=== PATIENT | female | born 1990 | race Caucasian/White ===

== ENCOUNTER 2018-10-10 18:45 | Outpatient (CLI) | payer MEDICAID, SELFPAY | END 2018-10-10 19:04 | disposition home or self-care (01) | LOC: UTC.OUT 18:47 | PROVIDERS: PCP Emergency Medicine; Visit Provider Nurse Practitioner | DX: Z00.00 Encounter for general adult medical examination without abnormal findings (principal) ==

== ENCOUNTER 2019-02-28 11:00 | Emergency (ER) | payer MEDICAID, SELFPAY ==
--- NOTE | 2019-02-28 11:08 | US_ITS ---
US OB transvaginal CLINICAL INDICATION: Patient gives history of recent ectopic with methotrexate given, cramping and spotting. ITS.REASON: ectopic ORDERING PHYSICIAN: Mynor Jones MD PATIENT AGE: 28 years Comparison: None There are no previous exams available at this institution for comparison FINDINGS: The uterus is 9 x 5 x 5 cm with a combined endometrial thickness of 9 mm. No intrauterine gestational sac is evident. The left ovary measures 3 x 2 cm containing small follicles. Blood flow is present. The right ovary is 6 x 3 cm containing 2 cysts at 1.9 and 1.4 cm. There is a hyperechoic rounded area along the right ovary measuring 2.4 cm. This does contain some blood flow and there is blood flow in the right ovary as well. This hyperechoic area could represent a and ectopic or a hemorrhagic ovarian cyst. There is a small amount of free fluid in the cul-de-sac. IMPRESSION: 1. No intrauterine gestation apparent. 2. Unremarkable appearing left ovary. 3. There are 2 right ovarian cyst as well as a hyperechoic region along the right ovary which could represent an ectopic or hemorrhagic cyst. Correlation with previous ultrasound needed and unavailable. There is a small amount fluid in the cul-de-sac. I am told that the serum beta hCG is 12,525. An intrauterine gestation patient be seen with this level. The findings are consistent with an ectopic .
[2019-02-28 11:09] VITALS: BP 142/76; PULSE 109; RESP 20; TEMP 36.8; O2SAT 100; BMI 19.1
--- NOTE | 2019-02-28 11:10 | HMH.EDGENADL ---
ED Disposition Clinical Impression: Ectopic Qualifiers: Location of ectopic : unspecified location Intrauterine status: unspecified Qualified Code(s): O00.90 - Unspecified ectopic without intrauterine Disposition: Home, Self-Care Condition on Discharge: Good Instructions: DI for Acute Abdomen Prescriptions: Hydrocodone/Acetaminophen [[place] 5-325 Tablet] 1 each PO BID 1 Days #3 tab Referrals: Sreedhar Chow MD [Primary Care Provider] - - Critical Care Critical Care Time: No Attestation: On , the high probability of a clinically significant, sudden or life threatening deterioration of the following system(s) required my full and direct attention, intervention and personal management. The time I documented below is in addition to time spent performing reported procedures but includes the following listed in this critical care notation. Medical Decision Making - Medical Records Medical records reviewed: Yes: I reviewed the patient's medical records. - Shailesh Inquiry Pt receiving controlled substance: Yes Shailesh was queried for this patient: No Reason not queried -: Emergent pt cond-no time Risks and benefits of using a controlled substance: were discussed with pt by me Vital Signs: 02/28/19 11:09 02/28/19 11:31 Temperature 98.2 F Temperature Source Oral Pulse Rate [Left Radial] 109 H 77 Respiratory Rate 20 Blood Pressure [Right Arm] 142/76 H 121/68 Blood Pressure Mean [Right Arm] 98 85 Blood Pressure Source [Right Arm] Automatic Cuff Blood Pressure Position [Right Arm] Sitting 02 Sat by Pulse Oximetry 100 100 Oxygen Delivery Method Room Air - Lab Data Lab results reviewed: Yes: I reviewed the patient's lab results. Lab Results 02/28/19 11:15: WBC 11.0 H, RBC 4.26, Hgb 13.1, Hct 38.1, MCV 89.4, MCH 30.7, MCHC 34.3, RDW 12.1, Plt Count 212, MPV 7.5, Neut % (Auto) 90.3 H, Lymph % (Auto) 7.4 L, [place] % (Auto) 1.9, Eos % (Auto) 0.3, Baso % (Auto) 0.1, Neut # (Auto) 9.9 H, Lymph # (Auto) 0.8, [place] # (Auto) 0.2, Eos # (Auto) 0.0, Baso # (Auto) 0.0, Total Counted 100, Neutrophils % (Manual) 87 H, Lymphocytes % (Manual) 6 L, Monocytes % (Manual) 7, Platelet Estimate Normal, RBC Morphology Normal 02/28/19 11:15: Sodium 139, Potassium 3.8, Chloride 103, Carbon Dioxide 23, Anion Gap 13.4, BUN 7, Creatinine 0.67, Estimated Creat Clear 111, Estimated GFR 106, Est GFR ( Amer) 129, Glucose 102, Calcium 8.7, Total Bilirubin 0.9, AST 21, ALT 28, Alkaline Phosphatase 37 L, Total Protein 7.6, Albumin 4.3, Globulin 3.3 H, Albumin/Globulin Ratio 1.3, Lipase 134, HCG, Quant 55000 H 02/28/19 11:33: Blood Type O Negative 02/28/19 12:18: Urine Color Yellow, Urine Appearance Sl cloudy, Urine pH 6.0, Ur Specific [place] <= 1.005, Urine Protein Negative, Urine Glucose (UA) Negative, Urine Ketones Trace, Urine Blood 2+, Urine Nitrate Negative, Urine Bilirubin Negative, Urine Urobilinogen 0.2, Ur Leukocyte Esterase Negative, Urine RBC 3-5, Urine WBC 3-5, Ur Squamous Epith Cells 5-10, Urine Bacteria 3+ Result diagrams: 02/28/19 11:15 02/28/19 11:15 Orders (Tests/Meds): ED MEDICATIONS Discontinued Medications Generic Name Dose Route Start Last Admin Trade Name Freq PRN Reason Stop Dose Admin Sodium Chloride 1,000 mls @ 999 mls/hr 02/28/19 11:15 02/28/19 11:28 Sod Chlor 0.9% 1000ml Bag IV 02/28/19 12:15 999 mls/hr .Q1H1M STEWART Administration Morphine Sulfate 2 mg 02/28/19 11:09 02/28/19 11:28 Morphine 2mg/Ml Syringe IV 02/28/19 11:10 2 mg ONCE ONE Administration Ondansetron HCl 4 mg 02/28/19 11:27 02/28/19 11:27 Zofran 4mg/2ml Vial IV 02/28/19 11:28 4 mg ONCE ONE Administration Rho Immune Globulin 1,500 unit 02/28/19 13:30 Rhogam Ultra-Filtered Plus IM 02/28/19 13:31 ONCE ONE ORDERS Category Date Time Status Urine Culture Stat Micro 02/28/19 12:18 Received - US Data US Images: Pelvis ED US Reviewed: Yes: Brynn mcgarry
--- NOTE | 2019-02-28 11:13 | ED_ITS ---
ED Disposition Clinical Impression: Ectopic Qualifiers: Location of ectopic : unspecified location Intrauterine status: unspecified Qualified Code(s): O00.90 - Unspecified ectopic without intrauterine Disposition: Home, Self-Care Condition on Discharge: Good Instructions: DI for Acute Abdomen Prescriptions: Hydrocodone/Acetaminophen [[place] 5-325 Tablet] 1 each PO BID 1 Days #3 tab Referrals: Sreedhar Chow MD [Primary Care Provider] - - Critical Care Critical Care Time: No Attestation: On , the high probability of a clinically significant, sudden or life threatening deterioration of the following system(s) required my full and direct attention, intervention and personal management. The time I documented below is in addition to time spent performing reported procedures but includes the following listed in this critical care notation. Medical Decision Making - Medical Records Medical records reviewed: Yes: I reviewed the patient's medical records. - Shailesh Inquiry Pt receiving controlled substance: Yes Shailesh was queried for this patient: No Reason not queried -: Emergent pt cond-no time Risks and benefits of using a controlled substance: were discussed with pt by me Vital Signs: 02/28/19 11:09 02/28/19 11:31 Temperature 98.2 F Temperature Source Oral Pulse Rate [Left Radial] 109 H 77 Respiratory Rate 20 Blood Pressure [Right Arm] 142/76 H 121/68 Blood Pressure Mean [Right Arm] 98 85 Blood Pressure Source [Right Arm] Automatic Cuff Blood Pressure Position [Right Arm] Sitting 02 Sat by Pulse Oximetry 100 100 Oxygen Delivery Method Room Air - Lab Data Lab results reviewed: Yes: I reviewed the patient's lab results. Lab Results 02/28/19 11:15: WBC 11.0 H, RBC 4.26, Hgb 13.1, Hct 38.1, MCV 89.4, MCH 30.7, MCHC 34.3, RDW 12.1, Plt Count 212, MPV 7.5, Neut % (Auto) 90.3 H, Lymph % (Auto) 7.4 L, [place] % (Auto) 1.9, Eos % (Auto) 0.3, Baso % (Auto) 0.1, Neut # (Auto) 9.9 H, Lymph # (Auto) 0.8, [place] # (Auto) 0.2, Eos # (Auto) 0.0, Baso # (Auto) 0.0, Total Counted 100, Neutrophils % (Manual) 87 H, Lymphocytes % (Manual) 6 L, Monocytes % (Manual) 7, Platelet Estimate Normal, RBC Morphology Normal 02/28/19 11:15: Sodium 139, Potassium 3.8, Chloride 103, Carbon Dioxide 23, Anion Gap 13.4, BUN 7, Creatinine 0.67, Estimated Creat Clear 111, Estimated GFR 106, Est GFR ( Amer) 129, Glucose 102, Calcium 8.7, Total Bilirubin 0.9, AST 21, ALT 28, Alkaline Phosphatase 37 L, Total Protein 7.6, Albumin 4.3, Globulin 3.3 H, Albumin/Globulin Ratio 1.3, Lipase 134, HCG, Quant 16414 H 02/28/19 11:33: Blood Type O Negative 02/28/19 12:18: Urine Color Yellow, Urine Appearance Sl cloudy, Urine pH 6.0, Ur Specific Lane <= 1.005, Urine Protein Negative, Urine Glucose (UA) Negative, Urine Ketones Trace, Urine Blood 2+, Urine Nitrate Negative, Urine Bilirubin Negative, Urine Urobilinogen 0.2, Ur Leukocyte Esterase Negative, Urine RBC 3-5, Urine WBC 3-5, Ur Squamous Epith Cells 5-10, Urine Bacteria 3+ Result diagrams: 02/28/19 11:15 02/28/19 11:15 Orders (Tests/Meds): ED MEDICATIONS Discontinued Medications Generic Name Dose Route Start Last Admin Trade Name Freq PRN Reason Stop Dose Admin Sodium Chloride 1,000 mls @ 99
[2019-02-28 11:27] LABS: Basophils % 0.1 % (0.1-2.0); Eosinophils % 0.3 % (0.1-12.0); Hematocrit 38.1 % (37.0-47.0); Hemoglobin 13.1 g/dL (12.2-16.2); Lymphocytes # 0.8 K/mm3 (0.7-4.5); Lymphocytes % 7.4 % (10-50); Mean Corpuscular HGB Conc 34.3 g/dL (31.8-35.4); Mean Corpuscular Hemoglobin 30.7 pg (27.0-31.2); Mean Corpuscular Volume 89.4 fl (81-99); Mean Platelet Volume 7.5 fl (7.4-10.4); Monocytes # 0.2 K/mm3 (0.1-1.0); Monocytes % 1.9 % (1.7-9.3); Neutrophils # 9.9 K/mm3 (1.8-7.8); Neutrophils % 90.3 % (37.0-80.0); Platelet Count 212 K/mm3 (142-424); Red Blood Count 4.26 M/mm3 (4.20-5.40); Red Cell Distribution Width 12.1 % (11.5-17.5)
[2019-02-28 11:31] VITALS: BP 121/68; PULSE 77; O2SAT 100
[2019-02-28 11:46] LABS: MANUAL DIFFERENTIAL MANUAL DIFFERENTIAL (MANUAL DIFF)
[2019-02-28 11:47] LABS: Sodium 139 mmol/L (136-145)
[2019-02-28 11:48] LABS: Alanine Aminotransferase 28 U/L (12-78); Albumin Level 4.3 gm/dL (3.4-5.0); Albumin/Globulin Ratio 1.3 (1.1-1.8); Alkaline Phosphatase 37 U/L (46-116); Anion Gap 13.4 mEq/L (5-15); Aspartate Amino Transferase 21 U/L (15-37); Bilirubin,Total 0.9 mg/dL (0.2-1.0); Blood Urea Nitrogen 7 mg/dL (7-18); Calcium 8.7 mg/dL (8.5-10.1); Carbon Dioxide 23 mmol/L (21.0-32.0); Chloride 103 mmol/L (98-107); Creatinine Clearance Estimated 111 mL/min (50-200); Creatinine,Serum 0.67 mg/dL (0.55-1.02); Estimated Glomerular Filt Rate 106 ml/min (>60); GFR (African American) 129 ML/MIN (>60); Globulin 3.3 gm/dl (1.3-3.2); Glucose 102 mg/dL (74-106); Lipase 134 u/L (73-393); Potassium 3.8 mmoL/L (3.5-5.1); Total Protein,Serum 7.6 gm/dL (6.4-8.2)
[2019-02-28 11:58] LABS: HCG,Quantitative 12525 mIU/mL
[2019-02-28 12:01] LABS: Lymphocytes % 6 % (10-50); Monocytes % 7 % (2-9); Neutrophils % 87 % (42-76); Platelet Estimate Normal; RBC Morphology Normal; Total Cells Counted 100
--- NOTE | 2019-02-28 12:17 | PC.NURSE ---
gone to ultrasound
[2019-02-28 12:22] LABS: Microscopic, Urine URINE MICROSCOPIC (MICROSCOPIC)
[2019-02-28 12:24] LABS: Appearance,Urine SL CLOUDY (Clear); Bilirubin,Urine Negative (Negative); Blood, Urine 2+ (Negative); Color,Urine YELLOW (Yellow); Glucose,Urine (UA) Negative (Negative); Ketones,Urine TRACE (Negative); Leukocyte Esterase,Urine Negative (Negative); Nitrate,Urine Negative (Negative); Protein,Urine Negative (Negative); Specific Gravity, Urine <= 1.005 (1.005-1.030); Urobilinogen,Urine 0.2 EU/dl (0.2)
[2019-02-28 12:35] LABS: Bacteria,Urine 3+ /lpf
--- NOTE | 2019-02-28 14:18 | PC.NURSE ---
called lab and spoke with Alireza to check status of rhogram shot
[2019-02-28 15:27] VITALS: BP 106/77; PULSE 94; RESP 17; TEMP 36.9; O2SAT 100
== END 2019-02-28 15:28 | disposition home or self-care (01) ==
PROVIDERS: Emergency Provider Emergency Medicine Emergency Medical Services; PCP Emergency Medicine
DX: O00.90 Unspecified ectopic pregnancy without intrauterine pregnancy (principal); F41.9 Anxiety disorder, unspecified; F17.210 Nicotine dependence, cigarettes, uncomplicated
CPT/HCPCS: 36415; 76817; 80053; 81001; 83690; 84702; 85007; 85025; 86870; 87086; 87088; 87186; 96365; 96372; 96375; 99283; J2405; J2790

== ENCOUNTER 2019-03-07 23:09 | Inpatient (IN) | payer MEDICAID, SELFPAY ==
[2019-03-07 23:09] VITALS: BMI 20.5
[2019-03-07 23:27] VITALS: BP 104/38; PULSE 88; RESP 20; TEMP 36.8; O2SAT 100; BMI 18.8
[2019-03-07 23:30] LABS: Basophils % 0.2 % (0.1-2.0); Eosinophils % 0.2 % (0.1-12.0); Hematocrit 32.3 % (37.0-47.0); Hemoglobin 10.5 g/dL (12.2-16.2); Lymphocytes # 1.3 K/mm3 (0.7-4.5); Lymphocytes % 7.2 % (10-50); Mean Corpuscular HGB Conc 32.5 g/dL (31.8-35.4); Mean Corpuscular Hemoglobin 29.1 pg (27.0-31.2); Mean Corpuscular Volume 89.4 fl (81-99); Mean Platelet Volume 7.8 fl (7.4-10.4); Monocytes # 0.5 K/mm3 (0.1-1.0); Monocytes % 2.6 % (1.7-9.3); Neutrophils # 16.7 K/mm3 (1.8-7.8); Neutrophils % 89.9 % (37.0-80.0); Platelet Count 309 K/mm3 (142-424); Red Blood Count 3.62 M/mm3 (4.20-5.40); Red Cell Distribution Width 12.7 % (11.5-17.5); White Blood Count 18.6 K/mm3 (4.8-10.8)
[2019-03-07 23:36] LABS: MANUAL DIFFERENTIAL MANUAL DIFFERENTIAL (MANUAL DIFF)
[2019-03-07 23:40] LABS: Lymphocytes % 8 % (10-50); Monocytes % 2 % (2-9); Neutrophils % 80 % (42-76); Platelet Estimate Normal; RBC Morphology Normal; Total Cells Counted 100
--- NOTE | 2019-03-07 23:40 | PC.NURSE ---
patient assessed at this time. pt is pale and c/o lower abdominal pain. vitals stable at this time. iv access obtained and labs sent to lab for resulting. Dr evangelista notified of patient and patient status at this time.
[2019-03-07 23:45] LABS: Alanine Aminotransferase 19 U/L (12-78); Albumin Level 3.8 gm/dL (3.4-5.0); Albumin/Globulin Ratio 1.2 (1.1-1.8); Alkaline Phosphatase 29 U/L (46-116); Anion Gap 12.3 mEq/L (5-15); Aspartate Amino Transferase 15 U/L (15-37); Bilirubin,Total 0.3 mg/dL (0.2-1.0); Blood Urea Nitrogen 8 mg/dL (7-18); Calcium 8.3 mg/dL (8.5-10.1); Carbon Dioxide 27 mmol/L (21.0-32.0); Chloride 105 mmol/L (98-107); Creatinine Clearance Estimated 131 mL/min (50-200); Creatinine,Serum 0.56 mg/dL (0.55-1.02); Estimated Glomerular Filt Rate 131 ml/min (>60); GFR (African American) 158 ML/MIN (>60); Globulin 3.1 gm/dl (1.3-3.2); Glucose 125 mg/dL (74-106); Potassium 3.3 mmoL/L (3.5-5.1); Sodium 141 mmol/L (136-145); Total Protein,Serum 6.9 gm/dL (6.4-8.2)
--- NOTE | 2019-03-07 23:52 | HMH.EDUROGF ---
ED Disposition Clinical Impression: Ruptured ectopic Disposition: Admitted as Observation Condition on Discharge: Critical Instructions: DI for Acute Abdomen Referrals: Provider,Referral, [Primary Care Provider] - - Critical Care Critical Care Time: No Attestation: On 03/07/19, the high probability of a clinically significant, sudden or life threatening deterioration of the following system(s) required my full and direct attention, intervention and personal management. The time I documented below is in addition to time spent performing reported procedures but includes the following listed in this critical care notation. Medical Decision Making - Medical Records Medical records reviewed: Yes: I reviewed the patient's medical records. - Shailesh Inquiry Pt receiving controlled substance: No Vital Signs: 03/07/19 23:27 Temperature 98.3 F Temperature Source Oral Pulse Rate [Right] 88 Respiratory Rate 20 Blood Pressure [Right Arm] 104/38 L Blood Pressure Mean [Right Arm] 60 02 Sat by Pulse Oximetry 100 - Lab Data Lab results reviewed: Yes: I reviewed the patient's lab results. Lab Results 03/07/19 23:26: WBC 18.6 H, RBC 3.62 L, Hgb 10.5 L, Hct 32.3 L, MCV 89.4, MCH 29.1, MCHC 32.5, RDW 12.7, Plt Count 309, MPV 7.8, Neut % (Auto) 89.9 H, Lymph % (Auto) 7.2 L, [place] % (Auto) 2.6, Eos % (Auto) 0.2, Baso % (Auto) 0.2, Neut # (Auto) 16.7 H, Lymph # (Auto) 1.3, [place] # (Auto) 0.5, Eos # (Auto) 0.0, Baso # (Auto) 0.0, Total Counted 100, Neutrophils % (Manual) 80 H, Band Neutrophils % 10.0 H, Lymphocytes % (Manual) 8 L, Monocytes % (Manual) 2, Platelet Estimate Normal, RBC Morphology Normal 03/07/19 23:26: Sodium 141, Potassium 3.3 L, Chloride 105, Carbon Dioxide 27, Anion Gap 12.3, BUN 8, Creatinine 0.56, Estimated Creat Clear 131, Estimated GFR 131, Est GFR ( Amer) 158, Glucose 125 H, Calcium 8.3 L, Total Bilirubin 0.3, AST 15, ALT 19, Alkaline Phosphatase 29 L, Total Protein 6.9, Albumin 3.8, Globulin 3.1, Albumin/Globulin Ratio 1.2 03/07/19 23:26: HCG, Quant 4849 H 03/08/19 00:30: Crossmatch (AHG) See Detail Result diagrams: 03/07/19 23:26 03/07/19 23:26 Orders (Tests/Meds): ED MEDICATIONS Generic Name Dose Route Start Last Admin Trade Name Freq PRN Reason Stop Dose Admin Sodium Chloride 1,000 mls @ 999 mls/hr 03/07/19 23:15 03/07/19 23:39 Sod Chlor 0.9% 1000ml Bag IV 03/08/19 00:15 999 mls/hr .Q1H1M STEWART Administration Sodium Chloride 1,000 mls @ 999 mls/hr 03/08/19 00:30 03/08/19 00:22 Sod Chlor 0.9% 1000ml Bag IV 03/08/19 01:30 999 mls/hr .Q1H1M STEWART Administration Sodium Chloride 1,000 mls @ 999 mls/hr 03/08/19 00:30 03/08/19 00:22 Sod Chlor 0.9% 1000ml Bag IV 03/08/19 01:30 999 mls/hr .Q1H1M STEWART Administration Discontinued Medications Generic Name Dose Route Start Last Admin Trade Name Porfirioq PRN Reason Stop Dose Admin Ketorolac Tromethamine 30 mg 03/07/19 23:11 03/07/19 23:39 Toradol 30mg/Ml Vial IV 03/07/19 23:12 30 mg ONCE ONE Administration Ondansetron HCl 4 mg 03/07/19 23:11 03/07/19 23:39 Zofran 4mg/2ml Vial IV 03/07/19 23:12 4 mg ONCE ONE Administration ORDERS Category Date Time Status Red Blood Cells Stat BBK 03/08/19 00:30 Received Type and Screen Stat BBK 03/08/19 00:[address] abdomen pelvis wo con Stat Cat Scan 03/08/19 00:18 Taken Urinalysis and Microscopic Stat Lab 03/07/19 23:13 Ordered - Physician Consults Physician Consulted: serafin Reason -: Pt condition Female Urogenital HPI - General Chief complaint: PAIN Stated complaint: abd. pain Time Seen by Provider: 06/09/19 23:52 Mode of Arrival: Ambulatory Source of Information: Patient, Medical Record Limitations: No Limitations Description of Symptoms (Recalled from ER Triage Doc. by RN): Pt states thr friday before last she was being treated at [facility] for an eptopic and recieved a methotraxate injection. Pt st
[2019-03-08] VITALS (44 sets, daily range): BP systolic 81–125; BP diastolic 28–95; PULSE 64–135; RESP 12–20; TEMP 35.9–43; O2SAT 97–104
--- NOTE | 2019-03-08 00:05 | PC.NURSE ---
consulting with Kleber
[2019-03-08 00:08] LABS: HCG,Quantitative 4849 mIU/mL
--- NOTE | 2019-03-08 00:11 | PC.NURSE ---
Addendum entered by Li Frances RN 03/08/19 01:27: Pt stable at this time, RN (fraternity house cook) accompanying pt. Pt a&ox3, VSS Original Note: Pt to CT at this time
--- NOTE | 2019-03-08 00:18 | CT_ITS ---
CT abdomen pelvis wo con CLINICAL INDICATION: Severe lower abdominal pain, history of ectopic ITS.REASON: abd pain ORDERING PHYSICIAN: Diego Parker MD PATIENT AGE: 28 years COMPARISON: None TECHNIQUE: Axial images obtained with sagittal and coronal reformats. All CT scans at the facility use one or more dose reduction, viz: automated exposure control, ma/kV adjustment per patient size (including targeted exams where dose is matched to indication, i.e. head), or iterative reconstruction technique. PROCEDURE: Oral Contrast: None IV Contrast: None . FINDINGS: The liver, spleen, adrenal glands, pancreas, and kidneys have an unremarkable appearance. No intestinal obstruction or free air is evident. The appendix is not clearly delineated. There is high-volume hyperdense fluid seen throughout the abdomen and pelvis more pronounced in the pelvic region centrally and on the left. A multilocular cystic structure present in the right adnexa. Hyperdense material also noted within the endometrium. IMPRESSION: 1. Extensive/high volume hemoperitoneum with multilocular cystic structure in the right adnexa which may be due to ruptured ectopic or ruptured ovarian cystic lesion versus underlying hydrosalpinx/hematosalpinx. 2. Hyperdense material within the endometrium probably due to hemorrhage/blood products. [facility] teleradiology report rendered 03/08/2019 12:46 AM
--- NOTE | 2019-03-08 00:33 | PC.NURSE ---
Dr Shahid with pt.
--- NOTE | 2019-03-08 00:42 | PC.NURSE ---
received verbal order for ancef [address] betancourt. dr betancourt instructs nurse to go ahead and initiate antibiotic therapy at this time. see mar.
--- NOTE | 2019-03-08 00:45 | PC.NURSE ---
pt remains c/o lower abdominal pain and cramping. pt lies on left side for minimal relief. anesthesia paged to obtain pain med relief recommendation by dr evangelista verbal order. no return call as of yet.
--- NOTE | 2019-03-08 00:53 | PC.NURSE ---
Pt to surgery at this time
--- NOTE | 2019-03-08 01:45 | PC.NURSE ---
Emergent blood started in OR witnessed per R Feeback
--- NOTE | 2019-03-08 01:55 | XR_ITS ---
XR KUB HISTORY: Foreign body evaluation exploratory laparotomy and removal right fallopian tube ITS.REASON: surgery ORDERING PHYSICIAN: Diego Parker MD PATIENT AGE: 28 years COMPARISON: None FINDINGS: Ceballos catheter is present. Nonspecific bowel gas pattern. No intestinal obstruction. There is mild amount of retained colonic feces. No radio opaque foreign body apparent. IMPRESSION: No radio opaque foreign body is evident..
--- NOTE | 2019-03-08 02:07 | P.OP_ITS ---
Date of procedure: 03/08/19 (Because the patient was exhibiting orthostatic hypotension and nominal distention, and because the CT scan demonstrated a large amount of fluid in the abdomen/pelvis, the decision was made to proceed directly to laparotomy.) Pre-op Diagnosis:: 1. Ruptured right ectopic . 2. Hemoperitoneum. Post-op Diagnosis:: 1. Leaking right ectopic . 2. Massive hemoperitoneum. Procedure performed:: 1. Exploratory laparotomy. 2. Evacuation of hemoperitoneum. 3. Right salpingectomy. Surgeon:: Karthik Shahid MD Well Driller Helper(s):: Dr. Camacho RECOVERY ROOM RN:: Tom Esteban Anesthesia: GETA Estimated blood loss (mL): 1,200 Operative findings:: Massive hemoperitoneum. Leaking right ectopic . Operative note:: After the patient was prepped and draped in usual fashion and general anesthesia was administered, a Ceballos catheter was placed per urethram, with the exudation of clear urine. A low Pfannenstiel incision was made across the midline, and the fat and fascia were in usual fashion, bleeders being clamped and coagulated along the way. The peritoneum was entered with Metzenbaum scissors. A large amount of blood and clots extruded from the incision, the clots filling a basin. The bowel was packed away, and a self-retaining [place] retractor with bladder blade was placed. The uterus was slightly enlarged and slightly boggy, but of normal configuration. The left tube and ovary appeared normal. On the right side the ovary appeared normal, save for a small distal pole corpus luteum cyst. Right tube was convoluted and distended with a mid tubal ectopic, which was bleeding. It was felt that the tube was not salvageable. The tube was grasped in 2 places with Jaylon clamps, and the mesosalpinx was crossclamped and cut, thus removing the right fallopian tube with the ectopic . The pedicle was doubly ligated with 2-0 Vicryl. There was no further undue bleeding. Extensive irrigation was carried out. There was quite a bit of blood and clots in both gutters and throughout the cul-de-sac, all of which was suctioned and evacuated. (The estimated total was 1,200 cc.) There was no other pathology noted. Interceed was placed over the right adnexa to obviate the formation of adhesions. The peritoneum was grasped with 3 Elana clamps, and closed with a running semi-locked suture of 0 Vicryl. The muscle was approximated with a running unlocked suture of 0 Vicryl. The fascia was closed with a running locked suture of #1 Vicryl. The subcutaneous fat and Cesar's fascia were closed with a running unlocked suture of 2-0 Vicryl. The skin was closed with a subcuticular suture of 3-0 Vicryl, and appropriately dressed. The urine was clear in the Ceballos catheter. The sponge and needle count had not been done preop because of the urgency of the procedure (a postop x-ray demonstrated no foreign bodies). The estimated blood loss was 1,200 cc. It should be noted that the patient's preop hemoglobin was 10.5 g, although it that likely did not reflect her true hemodynamic status. 1 unit of packed cells was found during surgery, and the second will be administered. The patient's blood type is O-, and she will receive RhoGam postoperatively. She will be admitted postoperatively. Condition: stable Disposition: PACU Specimens:: Right fallopian tube with ectopic Complications:: None
[2019-03-08 02:27] LABS: Microscopic, Urine URINE MICROSCOPIC (MICROSCOPIC)
[2019-03-08 02:35] LABS: Appearance,Urine CLEAR (Clear); Bilirubin,Urine Negative (Negative); Blood, Urine Negative (Negative); Color,Urine YELLOW (Yellow); Glucose,Urine (UA) Negative (Negative); Ketones,Urine Negative (Negative); Leukocyte Esterase,Urine Negative (Negative); Nitrate,Urine Negative (Negative); PH,Urine 5.5 (5.0-8.5); Protein,Urine Negative (Negative); Specific Gravity, Urine 1.025 (1.005-1.030); Urobilinogen,Urine 0.2 EU/dl (0.2)
[2019-03-08 02:41] LABS: Amorphous Sediment,Urine Trace /lpf; Mucus,Urine 4+ /lpf
--- NOTE | 2019-03-08 02:46 | HMH.ANESCL ---
[facility] Anesthesia Checklist - Patient Identification Patient Identification: Arm Band - Structural Data Admitted From: Emergency Dept Planned Operative Procedure/s: exploratory laparotomy Consent for Planned Operative Procedure(s) Verified: Yes Verified Documents: Surgical Consent, History and Physical - NPO Status Verified Time NPO: 00:00 - Additional verifications Anesthesia Reactions: No - Airway Assessment C-Spine Mobility Assessed: Yes (mp2) TMJ Mobility Assessed: Yes Dentition: Good Dentition - Neurological Assessment Level of Consciousness: Awake, Alert - Anesthesia Plan Anesthesia Risk discussed: Yes Anesthesia Plan: Verified ASA Class: II (e) Anesthesia Type: General [facility] History I have reviewed the patient's past medical history: Yes Medical History: Reports:: Anxiety Denies:: Cancer, Diabetes Mellitus Type 1, Diabetes Mellitus Type 2, Hypertension, MRSA *Have you ever received a pneumonia vaccine?: No *Have you received a flu vaccine this season?: No Other Medical History: Reports: Other Other Surgeries: Yes: No Previous Surgery Amputation: No Fractures: Yes - *Social History Smoking Status: Current every day smoker Tobacco Type: cigarettes # Packs/Day (cigarettes): 1 Alcohol Intake: never Alcohol Intake Frequency:: a few times a week Substance Use Type: denies use *Occupational Status:: employed *Travel in the last 8 weeks: None - Psychiatric History Expresses thoughts of harming self/others: None Suicide Plan Description: No Plan Pschychiatric History:: Reports:: Anxiety Family Hx:: No significant family history
--- NOTE | 2019-03-08 02:49 | P.PN_ITS ---
[facility] Anesthesia Record Part I Intake, IV Amount: 1,750 Estimated blood loss (mL): 1,200 Urine output (mL): 200 Blood Pressure: 108/64 SaO2: 100 Pulse Rate: 87 Respiratory Rate: 16 Temperature: 97 F Patient is:: Drowsy, Stable Stable to PACU at:: 02:35
--- NOTE | 2019-03-08 02:49 | HMH.ANESII ---
[facility] Anesthesia Record Part II Discharge Time: 03:05 Destination: Obstetric PACU nurse assessment reviewed?: Yes Patient Condition:: Good Anesthesia Complications:: None Swallowing reflex intact?: Yes Cyanosis?: No
[2019-03-08 03:06] LABS: Hematocrit 21.5 % (37.0-47.0)
[2019-03-08 03:07] LABS: Hemoglobin 6.8 g/dL (12.2-16.2)
--- NOTE | 2019-03-08 03:13 | PC.NURSE ---
0110-f/c inserted at this time lot # [id number] exp date: 09-28-2020
--- NOTE | 2019-03-08 04:20 | SUR.OPER ---
0114-Incision made at this time, unable to perform sponge and instrument count prior to incision r/t emergency of procedure. Dr. Shahid and notified and notified that xray would need to be performed prior to closing of incision for verification. 0130-Notified per Kassandra, labratory tech that blood is ready to be transfused on emergency release basis r/t pt's antibodies. Notified Dr. Shahid who then ordered for patient to receive 2 units PRBC's transfusion now. 0145-1st unit of PRBC's started at this time- unit of blood verified per ALEJA Griffin,RN and Jolanta,RN-see blood vitals and anesthesia record. 0200-radiology at bedside at this time obtaining KUB xray to verify no sponges or instruments left in abdomen/pelvis prior to closure. 0215-1st unit of PRBC's completed at this time-pt benny well with no signs of transfusion reaction noted-see blood vitals and anesthesia record. Awaiting radiology report at this time prior to closure for verification of no sponges or instruments left in abd/pelvis. 0221-Garrickradio tower technician called to verify that no sponges or instruments were left in pt's abd/pelvis as confirmed by virtual radiology report. See report on pt's chart. Notified MD at this time.
--- NOTE | 2019-03-08 04:37 | SUR.OPER ---
addendum to note at 0215-1st unit of PRBC's was completed at 0215
--- NOTE | 2019-03-08 04:41 | SUR.OPER ---
addendum to note at 0215-1st unit PRBC's completed at 021
--- NOTE | 2019-03-08 04:54 | PC.NURSE ---
0245- 2nd unit PRBC's started at this time-verified per SAGRARIO Stover,SAGRARIO and Elias,ALEJA-pt denies pain or nausea a this time, VSS.
[2019-03-08 04:56] LABS: Hematocrit 27.1 % (37.0-47.0); Hemoglobin 9.2 g/dL (12.2-16.2)
--- NOTE | 2019-03-08 05:19 | PC.NURSE ---
0335-2nd unit PRBC's completed at this time-pt benny well with no s/s of transfusion reaction. PT denies SOA and lung sounds remain CTA. VSS. Pt dozing off to sleep and appears to be resting easy at this time. Pt will easily arouse to verbal stimuli and answering questions appropriately/following commands. Pt reports pain remains about 2/10 to abdomen and is not worsening. PT denies nausea. Warm blankets in place. Pt's color much improving with PRBC's transfusions. Will continue to monitor. 0336-detailed report called to SAGRARIO Bishop 0340-Pt transported to OB department room 280 via hospital bed w/nguyễn rails up per SAGRARIO Villanueva and SAGRARIO Stover. Pt left in care of SAGRARIO Bishop with bed locked in lowest position. VSS. Family at bedside. PT stable.
--- NOTE | 2019-03-08 06:40 | PC.NURSE ---
UPON ENTERING ROOM PT WAS SLEEPING.EASILY AROUSED.STILL PALE IN COLOR.LUNGS CLEAR,RESP.EVEN AND UNLABORED.NO NEW DRAINAGE TO DRESSING.TRAN CATH EMPTIED AT THIS TIME.200ML CLEAR YELLOW URINE.NO VAG.DRAINAGE NOTED,
--- NOTE | 2019-03-08 07:05 | PC.NURSE ---
Report received form Burt Bunch RN.
--- NOTE | 2019-03-08 07:30 | PC.NURSE ---
Addendum entered by Chelly Gallegos RN 03/08/19 08:24: VO full liquid diet. Original Note: Dr. Shahid here to assess pt. Orders had been cancelled for IV ABX. Dr. Shahid VO to give IV ABX 1gm Ancef @ 9am & 5pm. States to remove indwelling catheter around 1200 and ambulate if pt is able. VO clear liquid diet. VO of H/H @1200.
--- NOTE | 2019-03-08 07:39 | HMH.ACPN2 ---
Internal Medicine - PN: Subj *Date: 03/08/19 *Time: 07:39 Interval history: This is day of surgery. Surgery has been explained to the patient. She underwent an exploratory laparotomy with evacuation of a massive hemoperitoneum and right salpingectomy for a leaking ectopic . She will receive RhoGam today (blood type O-). She is afebrile. Her vital signs are stable. Wound clean. Abdomen soft. Her post transfusion (2 units of packed cells) hemoglobin is 9.2 g. I will repeat her H&H at noon today. Impression: Stable. Exam Vital signs and Labs for Last 24 Hours: Temp Pulse Resp BP Pulse Ox 98.4 F 81 16 88/58 L 99 03/08/19 05:45 03/08/19 06:15 03/08/19 06:15 03/08/19 06:15 03/08/19 06:15 Laboratory Results - last 24 hr 03/07/19 23:26: WBC 18.6 H, RBC 3.62 L, Hgb 10.5 L, Hct 32.3 L, MCV 89.4, MCH 29.1, MCHC 32.5, RDW 12.7, Plt Count 309, MPV 7.8, Neut % (Auto) 89.9 H, Lymph % (Auto) 7.2 L, [place] % (Auto) 2.6, Eos % (Auto) 0.2, Baso % (Auto) 0.2, Neut # (Auto) 16.7 H, Lymph # (Auto) 1.3, [place] # (Auto) 0.5, Eos # (Auto) 0.0, Baso # (Auto) 0.0, Total Counted 100, Neutrophils % (Manual) 80 H, Band Neutrophils % 10.0 H, Lymphocytes % (Manual) 8 L, Monocytes % (Manual) 2, Platelet Estimate Normal, RBC Morphology Normal 03/07/19 23:26: Sodium 141, Potassium 3.3 L, Chloride 105, Carbon Dioxide 27, Anion Gap 12.3, BUN 8, Creatinine 0.56, Estimated Creat Clear 131, Estimated GFR 131, Est GFR ( Amer) 158, Glucose 125 H, Calcium 8.3 L, Total Bilirubin 0.3, AST 15, ALT 19, Alkaline Phosphatase 29 L, Total Protein 6.9, Albumin 3.8, Globulin 3.1, Albumin/Globulin Ratio 1.2 03/07/19 23:26: HCG, Quant [id number] H 03/08/19 00:30: Blood Type O Negative, Antibody Screen Positive, Crossmatch (AHG) See Detail 03/08/19 02:05: Urine Color Yellow, Urine Appearance Clear, Urine pH 5.5, Ur Specific [place] 1.025, Urine Protein Negative, Urine Glucose (UA) Negative, Urine Ketones Negative, Urine Blood Negative, Urine Nitrate Negative, Urine Bilirubin Negative, Urine Urobilinogen 0.2, Ur Leukocyte Esterase Negative, Urine WBC 3-5, Amorphous Sediment Trace, Urine Mucus 4+ 03/08/19 02:16: Hgb 6.8 L* D, Hct 21.5 L* 03/08/19 04:40: Hgb 9.2 L D, Hct 27.1 L I & O for Last 24 hours: Intake & Output 03/05/19 03/06/19 03/07/19 03/08/19 11:59 11:59 11:59 11:59 Intake Total 5133 / 5133 Output Total 300 / 300 Balance 4833 / 4833 Weight 120 lb
--- NOTE | 2019-03-08 07:45 | PC.NURSE ---
Pt assessed at this time. States pain is a 1/10 on verbal scale. States more of a chest gas pain. Clear lung sounds bilaterally. No edema noted. BLE thigh high calf scuds in place. LR IV infusing RAC @ 125 ml/hr. VS stable. Offered clear liquid diet. Pt states that she would try to drink some apple juice. Indwelling catheter bag emptied with a output of 450ml. Denies any further needs at this time. Will continue to observe.
--- NOTE | 2019-03-08 08:45 | PC.NURSE ---
VS obtained at this time. VS stable and BP improving. States ABD pain is 2/10 on right side. States R shoulder neck pain is a 6/10. Simethicone given at this time and IV scheduled toradol. Denies any further needs at this time.
--- NOTE | 2019-03-08 09:15 | PC.NURSE ---
IV ABX started at this time. Medicated per EMAR r/t pain 6/10 on verbal scale at this time. Denies any further needs.
--- NOTE | 2019-03-08 09:35 | PC.NURSE ---
Chicken broth brought to the pt at this time per pt request. Denies any further needs.
--- NOTE | 2019-03-08 09:45 | PC.NURSE ---
VS obtained at this time. Pt is stable and improving. Denies any further needs.
--- NOTE | 2019-03-08 10:45 | PC.NURSE ---
Rhogam given in R Deltoid at this time. VS obtained at this time and are stable. Indwelling catheter emptied at this time 575 ml. Family at bedside and are supportive. Denies any further needs at this time.
--- NOTE | 2019-03-08 11:09 | PC.NURSE ---
Pt stated that R shoulder to neck pain still persists and it is a sharp pain that is constant. States that this pain has been present since admitted to the hospital 03/07/19. States pain is a 5/10 on verbal pain scale and she states that it has decreased in pain since upon admit.
--- NOTE | 2019-03-08 11:13 | PC.NURSE ---
Dr. Shahid called in regards to pt R shoulder and neck pain. No new orders at this time.
--- NOTE | 2019-03-08 11:39 | PC.NURSE ---
Dr. Shahid here to assess pt.
--- NOTE | 2019-03-08 11:40 | PC.NURSE ---
Dr. Shahid TO Ativan 0.5mg PO @ bedtime PRN r/t anxiety.
--- NOTE | 2019-03-08 12:10 | PC.NURSE ---
VS obtained at this time. VS stable. Lunch given to pt at this time. Denies any further needs at this time.
--- NOTE | 2019-03-08 12:12 | PC.NURSE ---
LAB here for H/H on pt at this time.
[2019-03-08 12:37] LABS: Hematocrit 25.1 % (37.0-47.0); Hemoglobin 8.9 g/dL (12.2-16.2)
--- NOTE | 2019-03-08 13:15 | PC.NURSE ---
Medicated per EMAR at this time R/T pain. States pain is 9/10 and is sharp stabbing pain. Tried to DC indwelling catheter at this time pt requested to wait an hour so that she could rest. Denies any further needs at this time.
--- NOTE | 2019-03-08 13:20 | PC.NURSE ---
Called Dr. Shahid at this time to notify him of the pts H/H. Ferrous sulfate 325mg PO BID ordered at this time.
--- NOTE | 2019-03-08 14:15 | PC.NURSE ---
Sleeping at this time. Will continue to observe.
--- NOTE | 2019-03-08 14:45 | PC.NURSE ---
Medicated per EMAR at this time. States ABD pain is 0/10 when not moving. States shoulder neck pain is 2/10. Senna and iron pill given at this time. Indwelling catheter removed at this time. Denies any further needs. Pt is instructed to ring call light when she feels the urge to void.
--- NOTE | 2019-03-08 15:20 | PC.NURSE ---
Resting with eyes closed at this time will continue to observe.
--- NOTE | 2019-03-08 16:00 | PC.NURSE ---
Reassessed at this time. VS stable. Bilateral lung sounds clear. Denies passing of flatus but feels like she could. Bowel sounds active X4 quadrants. Denies any further needs at this time. Pt is aware that she is to get up with help of staff at 1700.
--- NOTE | 2019-03-08 16:36 | PC.NURSE ---
R AC IV Dc'd at this time. IV ABX now running in L AC. Denies any further needs at this time.
--- NOTE | 2019-03-08 16:56 | PC.NURSE ---
Eating dinner at this time. Denies any further needs.
--- NOTE | 2019-03-08 17:15 | PC.NURSE ---
Still eating dinner at this time. Denies any further needs.
--- NOTE | 2019-03-08 17:40 | PC.NURSE ---
Went to help pt get up out of bed. Pt states that ABD is hurting 05/08. Medicated per EMAR at this time will return in 15 min.
--- NOTE | 2019-03-08 18:12 | PC.NURSE ---
Pt ambulated to the BR. Voided 175 ml with a small clot that is the size of a half dollar. Pt is in shower at this time. Bed linens were changed at this time.
--- NOTE | 2019-03-08 18:51 | PC.NURSE ---
Pt voided 150 ml at this time. Dressing removed, incision cleaned with 1/2 sterile water and 1/2 peroxide and new dressing in place. Incision is approximated and no drainage is noted. Denies any further needs at this time.
--- NOTE | 2019-03-08 19:17 | PC.NURSE ---
Report given to Iris Higginbotham RN.
--- NOTE | 2019-03-08 19:40 | PC.NURSE ---
Pt provided with KPAD for neck pain.
--- NOTE | 2019-03-08 22:40 | PC.NURSE ---
Pt currently resting well, asleep. LR continues infusing w/o diff. at 125ml/hr
[2019-03-09] VITALS (9 sets, daily range): BP systolic 103–111; BP diastolic 58–67; PULSE 71–87; RESP 18; TEMP 34.9–36.9; O2SAT 99–100
--- NOTE | 2019-03-09 04:43 | PC.NURSE ---
Pt sleeping soundly at this time. Sig other asleep in sleep chair at bs.
--- NOTE | 2019-03-09 05:30 | PC.NURSE ---
Reassessment performed at this time. Pt was asleep upon entering room. Temp 98.1 (previously 99.4). Pt is ambulating in room to bathroom and back to bed with standby assist. LR continues to infuse at 125ml/hr in left AC. VS wnl, +bs x 4 quads, LTV incision dressing remains CDI. Lungs clear to auscultate throughout. No edema noted. Tolerating full liquid diet well. Reports relief from neck pain now. Continues to use KPAD to neck and rt shoulder.
--- NOTE | 2019-03-09 07:00 | PC.NURSE ---
Report received from Iris Higginbotham RN.
--- NOTE | 2019-03-09 07:10 | PC.NURSE ---
Dr. Shahid here to assess pt at time. Dr. Shahid states to advance to soft diet at this time and has ordered PO pain medicine. Will medicate according to EMAR.
--- NOTE | 2019-03-09 07:16 | HMH.ACPN2 ---
Internal Medicine - PN: Subj *Date: 03/09/19 *Time: 07:16 Interval history: This is postop day #1. The patient is afebrile. Her vital signs are stable. Wound clean. Abdomen soft. She has passed flatus. Her hemoglobin is stable at 8.9 g and she is on oral iron. She received RhoGam. The plan is to advance her diet and switch to oral pain medication. Improving. Exam Vital signs and Labs for Last 24 Hours: Temp Pulse Resp BP Pulse Ox 98.1 F 71 18 111/66 98 03/09/19 05:40 03/09/19 04:35 03/09/19 04:35 03/09/19 04:35 03/08/19 20:22 Laboratory Results - last 24 hr 03/08/19 00:30: Blood Type O Negative, Antibody Screen Positive, Crossmatch (AHG) See Detail 03/08/19 04:40: Blood Type O Negative, Antibody Screen Positive, Screen Negative, Baby's Rh Status Unknown 03/08/19 10:18: Rhogam Infusion Rhogam release 03/08/19 12:18: Hgb 8.9 L, Hct 25.1 L I & O for Last 24 hours: Intake & Output 03/06/19 03/07/19 03/08/19 03/09/19 11:59 11:59 11:59 11:59 Intake Total 5133 / 5133 2826 / 2826 Output Total 1325 / 1325 1275 / 1275 Balance 3808 / 3808 1551 / 1551 Weight 120 lb
--- NOTE | 2019-03-09 07:30 | PC.NURSE ---
Addendum entered by Chelly Gallegos RN 03/09/19 07:33: Original Note: Breakfast brought to pt at this time. Denies any needs.
--- NOTE | 2019-03-09 07:37 | PC.NURSE ---
New breakfast tray delivered to pt at this time including the newly ordered soft diet.
--- NOTE | 2019-03-09 08:20 | PC.NURSE ---
Assessment performed at this time. Bilateral lung sounds clear. VS stable. Pt is tolerating soft diet well. States pain is 6/10 on verbal scale stating that her ABD is tender. States neck pain is 2/10 but improving. Low transverse dressing C/D/I. Pt is able to ambulate to the BR and back. Medicated per EMAR at this time. Goals for today include ambulating around nurses station x2. Denies any further needs will continue to observe.
--- NOTE | 2019-03-09 09:11 | PC.NURSE ---
Pt resting with eyes closed at this time. Will continue to observe.
--- NOTE | 2019-03-09 10:01 | PC.NURSE ---
Pt resting with eyes closed at this time. New bag of IV fluids hung at this time. Will continue to observe.
--- NOTE | 2019-03-09 11:25 | PC.NURSE ---
Resting in bed with eyes closed will continue to observe.
--- NOTE | 2019-03-09 12:00 | PC.NURSE ---
VS obtained at this time and are stable. States ABD pain is 2/10 when not moving and increases to 6/10 when moving and ambulating. Pt was able to ambulate by herself to the restroom and back. Voided a large clear yellow amount. Denies any further needs at this time.
--- NOTE | 2019-03-09 12:06 | PC.NURSE ---
Eating soft diet lunch at this time. Denies any further needs at this time.
--- NOTE | 2019-03-09 13:05 | PC.NURSE ---
Pt stated that she felt as if she was having an anxiety attack after her mom & son left. She stated that she sometimes took her anxiety medicine in the middle of the day instead of at night if she felt as if she needed it. Medicated per EMAR at this time r/t anxiety.
--- NOTE | 2019-03-09 14:12 | PC.NURSE ---
Pt resting with eyes closed at this time. Will continue to observe.
--- NOTE | 2019-03-09 14:55 | PC.NURSE ---
Medicated per EMAR at this time. States pain is a 6/10 with tenderness in her ABD. Laying in bed at this time. Denies any further needs.
--- NOTE | 2019-03-09 15:10 | PC.NURSE ---
Pt ambulated to the BR at this time. Passed a half dollar size clot with small amount of bleeding. Denies any further needs at this time.
--- NOTE | 2019-03-09 15:20 | PC.NURSE ---
Pt ambulated around the nurses station X2 at this time. Tolerated well. States that ABD feels tight and burning. Rates pain 4/10. Returned to be IV reconnected with LR @ 125ml/hr and thigh high scuds reattached. Denies any further needs at this time.
--- NOTE | 2019-03-09 15:43 | PC.NURSE ---
Reassessed at this time. VS stable. Bilateral lung sounds clear. Bowel sounds present X4 quadrants. Pt states that she is now able to pass gas. Pain is rated 4/10 on verbal scale. Denies any further needs at this time. Will continue to observe.
--- NOTE | 2019-03-09 16:09 | PC.NURSE ---
Dr. Shahid called and checked on pt at this time. Updated on current status.
--- NOTE | 2019-03-09 16:52 | PC.NURSE ---
Medicated pt r/t EMAR for ABD pain 6/10 on verbal scale. Dinner tray brought to pt at this time. Denies any further needs.
--- NOTE | 2019-03-09 17:20 | PC.NURSE ---
Laying in bed eating dinner at this time. Denies any further needs at this time.
--- NOTE | 2019-03-09 18:37 | PC.NURSE ---
Resting in bed with eyes closed at this time. Will continue to observe.
--- NOTE | 2019-03-09 19:05 | PC.NURSE ---
Report given to Iris Higginbotham RN.
--- NOTE | 2019-03-09 22:35 | PC.NURSE ---
Pt offered help with getting up to shower and having bed linens changed. Pt declined stating that she'd rather wait until in the morning.
[2019-03-10 03:00] VITALS: BP 97/54; PULSE 85; RESP 18; TEMP 36.7
--- NOTE | 2019-03-10 03:04 | PC.NURSE ---
Pt awaken upon entering room to check on her. Denies needing anything at this time. Denies needing any pain medication. Sig other remains asleep in chair at bs.
--- NOTE | 2019-03-10 04:21 | PC.NURSE ---
Pt reassessed at this time. Has rested well throughout the night. V/S wnl, afebrile, +BS x4, lungs CTA, no edema noted. LTV incision with telfa/tegaderm dressing CDI. LR continues infusing in Left AC at 125ml/hr. Pt ambulating and voiding well / without diff. Tolerating po diet well. Pt's sig other has remained at her bs and attentive to her needs.
--- NOTE | 2019-03-10 06:22 | PC.NURSE ---
Pt sleeping soundly. Sig other remains asleep at bs in sleep chair.
--- NOTE | 2019-03-10 07:10 | PC.NURSE ---
BREAKFAST TRAY PROVIDED TO PATIENT AT THIS TIME.
--- NOTE | 2019-03-10 07:33 | HMH.ACPN2 ---
Internal Medicine - PN: Subj *Date: 03/10/19 *Time: 07:33 Interval history: This is postop day #2. The patient is afebrile. Her vital signs are stable. Wound clean. Abdomen soft, albeit slightly distended. She is passing flatus and ambulating. Still having moderate pain. Impression: Improving. Exam Vital signs and Labs for Last 24 Hours: Temp Pulse Resp BP Pulse Ox 98.1 F 85 18 97/54 L 99 03/10/19 03:00 03/10/19 03:00 03/10/19 03:00 03/10/19 03:00 03/09/19 20:30 Laboratory Results - last 24 hr 03/08/19 00:30: Antibody Identification Anti-D 03/08/19 04:40: Antibody Identification Anti-D I & O for Last 24 hours: Intake & Output 03/07/19 03/08/19 03/09/19 03/10/19 11:59 11:59 11:59 11:59 Intake Total 5133 / 5133 2826 / 2826 3000 / 3000 Output Total 1325 / 1325 1275 / 1275 Balance 3808 / 3808 1551 / 1551 3000 / 3000 Weight 120 lb
--- NOTE | 2019-03-10 07:39 | PC.NURSE ---
DR. FERRARO AT BEDSIDE.
[2019-03-10 07:48] VITALS: O2SAT 100
--- NOTE | 2019-03-10 07:48 | PC.NURSE ---
Patient assessed at this time. Respirations are equal and spontaneous. Bowel sounds are present X4. Dressing is still intact at this time. Patient plans to shower later in the morning and was told it was fine to remove dressing and leave open to air. Patient states pain is easing since being given medication. Will continue to monitor.
[2019-03-10 07:49] VITALS: BP 105/59; PULSE 101; RESP 16; TEMP 36.7; O2SAT 100
--- NOTE | 2019-03-10 08:23 | PC.NURSE ---
Patient states that pain is continuing to decrease and that she has no needs/concerns at this time.
--- NOTE | 2019-03-10 11:31 | PC.NURSE ---
Patient up to shower at this time. Bed linens changed.
--- NOTE | 2019-03-10 11:56 | PC.NURSE ---
Patient back in bed following shower. Dressing was removed at this time and left open to air. Incision is C/D/I.
--- NOTE | 2019-03-10 14:16 | PC.NURSE ---
Patient states that she is in a lot of pain on the right side at this time. Requests MD to be called to see if there is anything she can have for pain. Dr. Shahid called and T/O 2mg Dilaudid PO now. Md stated that dose could be repeated if needed. Order was repeated and verified. Medication was discussed with patient prior to administration.
--- NOTE | 2019-03-10 16:20 | PC.NURSE ---
Patient reassessed at this time. Respirations even and unlabored, bowel sounds present X4. Incision was cleaned with half NS and half peroxide. Incision was C/D/I/ and clear from any signs of infection. Patient stated pain was much better and that she has been able to sleep and she plans to continue napping throughout the evening. No needs/concerns expressed by patient at this time. Will continue to monitor.
[2019-03-10 16:22] VITALS: BP 98/58; PULSE 89; RESP 16; TEMP 36.8; O2SAT 99
--- NOTE | 2019-03-10 17:31 | PC.NURSE ---
Patient stated that she is starting to feel anxious. Ativan 0.5mg PO was given at this time. Patient discussed being anxious when thinking of getting discharged and not having enough help once home. Patient stated she knows everything will be fine but just being anxious and worried. Nurse at bedside to continue discussing any concerns or worries patient may have.
--- NOTE | 2019-03-10 18:09 | PC.NURSE ---
Patient sitting up in bed talking to visitors at this time. States that she is comfortable and has no needs.
[2019-03-10 19:40] VITALS: BP 113/65; PULSE 91; RESP 16; TEMP 36.9; O2SAT 98
--- NOTE | 2019-03-10 19:40 | PC.NURSE ---
Pt. resting in bed Nurse assessment completed. Lungs CTA. Bowels sounds present, Pt. reports passing Flatus, denies bowel movement, incision approximated and YOSELIN. Pt. rates pain at 5/10 on RLQ, Radiating across incision. Percocet given, see MAR. Pt, request to wait for incision to be cleaned after pain medication starts working. Nurse v/u. Pt. denies further needs.
--- NOTE | 2019-03-10 23:55 | PC.NURSE ---
IV alarming, Fluids empty. New bag of LR hung, Pt. rates pain at 6/10, Toradol and percocet given see MAR. Pt. up to bathroom, tolerated well. x1 unmeasured void. Pt. denies further needs.
[2019-03-11 04:30] VITALS: BP 97/56; PULSE 78; RESP 14; TEMP 36.8; O2SAT 97
--- NOTE | 2019-03-11 04:30 | PC.NURSE ---
Pt. reassessed at this time, no acute changes from previous assessment. Incision Remains approximated, and YOSELIN. Pt. rates pain at 4/10 in RLQ, radiates across lower abd and incision site. Percocet given see MAR. Pt. denies further needs at this time.
--- NOTE | 2019-03-11 07:24 | HMH.ACPN2 ---
Internal Medicine - PN: Subj *Date: 03/11/19 *Time: 07:24 Interval history: This morning the patient is afebrile. Vital signs stable. Wound clean. Abdomen soft, but she has not had a bowel movement yet and is feeling somewhat distended. Going to give her a Dulcolax tablet and check on her later for possible discharge. Exam Vital signs and Labs for Last 24 Hours: Temp Pulse Resp BP Pulse Ox 98.3 F 78 14 97/56 L 97 03/11/19 04:30 03/11/19 04:30 03/11/19 04:30 03/11/19 04:30 03/11/19 04:30 Laboratory Results - last 24 hr 03/08/19 00:30: Crossmatch (AHG) See Detail I & O for Last 24 hours: Intake & Output 03/08/19 03/09/19 03/10/19 03/11/19 11:59 11:59 11:59 11:59 Intake Total 5133 / 5133 2826 / 2826 3000 / 3000 2745 / 2745 Output Total 1325 / 1325 1275 / 1275 Balance 3808 / 3808 1551 / 1551 3000 / 3000 2745 / 2745 Weight 120 lb
[2019-03-11 08:00] VITALS: BP 103/68; PULSE 88; RESP 18; TEMP 36.6; O2SAT 99
--- NOTE | 2019-03-11 13:06 | P.PN_ITS ---
Internal Medicine - PN: Subj *Date: 03/11/19 *Time: 13:06 (The patient is afebrile. Vital signs stable. Wound clean. Ab domen soft. Passing flatus. Ambulating well. She will be discharged this afternoon.) Exam Vital signs and Labs for Last 24 Hours: Temp Pulse Resp BP Pulse Ox 97.8 F 88 18 103/68 L 99 03/11/19 08:00 03/11/19 08:00 03/11/19 08:00 03/11/19 08:00 03/11/19 08:00 Laboratory Results - last 24 hr 03/08/19 00:30: Crossmatch (AHG) See Detail I & O for Last 24 hours: Intake & Output 03/09/19 03/10/19 03/11/19 03/12/19 11:59 11:59 11:59 11:59 Intake Total 2826 / 2826 3000 / 3000 2745 / 2745 Output Total 1275 / 1275 Balance 1551 / 1551 3000 / 3000 2745 / 2745
--- NOTE | 2019-03-11 13:07 | HMH.DCSUM ---
General - General Admission date:: 03/08/19 Discharge date: 03/11/19 Hospital Course Rhogam Administration: Given Objective Vital signs: Temp Pulse Resp BP Pulse Ox 97.8 F 88 18 103/68 L 99 03/11/19 08:00 03/11/19 08:00 03/11/19 08:00 03/11/19 08:00 03/11/19 08:00 Results Labs on day of discharge: Labs from last 24 hours 03/08/19 00:30 Crossmatch (AHG) See Detail Discharge Plan - Patient Discharge Instructions Additional Instructions: No strenuous activity Follow up with Dr. Shahid on 03/25/2019 at 2:15PM Nothing in vagina for 6 weeks Take medications as prescribed Patient Instructions: How to Care for a Surgical Wound, Anxiety and Panic Attacks (Alternative Therapy), DI for Anxiety -- Adult, DI for Acute Abdomen, DI for Postoperative Pain, DI for Prescription Opioid Use - Follow up Plan Follow up with: Provider,Referral, MD [Primary Care Provider] - Disposition: Home, Self-Fci Medications: Home Medications Medication Instructions Recorded Confirmed Type Ferrous Sulfate [Ferrous Sulfate 325 mg PO BID tab 03/11/19 Rx 325mg Tablet] Oxycodone HCl/Acetaminophen 1 each PO Q6H PRN #20 tab 03/11/19 Rx [Percocet 5/325mg tablet] norgestimate-ethinyl estradiol 1 tab PO DAILY 30 Days #30 tab 03/25/19 03/25/19 Rx 0.18 mg/0.215mg/0.25mg-35 mcg(28)tablet Prescriptions/Medication Reconciliation: New Ferrous Sulfate [Ferrous Sulfate 325mg Tablet] 325 mg PO BID tab Oxycodone HCl/Acetaminophen [Percocet 5/325mg tablet] 1 each PO Q6H PRN #20 tab PRN Reason: Moderate To Severe Pain Discontinued Nitrofurantoin Monohyd/M-Cryst [Nitrofurantoin [place]-Mcr 100 mg] 100 mg PO BID No Action norgestimate-ethinyl estradiol 0.18 mg/0.215mg/0.25mg-35 mcg(28)tablet 1 tab PO DAILY 30 Days #30 tab
--- NOTE | 2019-03-11 13:13 | P.DS_ITS ---
General - General Admission date:: 03/08/19 Discharge date: 03/11/19 Hospital Course Rhogam Administration: Given Objective Vital signs: Temp Pulse Resp BP Pulse Ox 97.8 F 88 18 103/68 L 99 03/11/19 08:00 03/11/19 08:00 03/11/19 08:00 03/11/19 08:00 03/11/19 08:00 Results Labs on day of discharge: Labs from last 24 hours 03/08/19 00:30 Crossmatch (AHG) See Detail Discharge Plan - Patient Discharge Instructions Additional Instructions: No strenuous activity Follow up with Dr. Shahid on 03/25/2019 at 2:15PM Nothing in vagina for 6 weeks Take medications as prescribed Patient Instructions: How to Care for a Surgical Wound, Anxiety and Panic Attacks (Alternative Therapy), DI for Anxiety -- Adult, DI for Acute Abdomen, DI for Postoperative Pain, DI for Prescription Opioid Use - Follow up Plan Follow up with: Provider,Referral, MD [Primary Care Provider] - Disposition: Home, Self-Residential Medications: Home Medications Medication Instructions Recorded Confirmed Type Ferrous Sulfate [Ferrous Sulfate 325 mg PO BID tab 03/11/19 Rx 325mg Tablet] Oxycodone HCl/Acetaminophen 1 each PO Q6H PRN #20 tab 03/11/19 Rx [Percocet 5/325mg tablet] norgestimate-ethinyl estradiol 1 tab PO DAILY 30 Days #30 tab 03/25/19 03/25/19 Rx 0.18 mg/0.215mg/0.25mg-35 mcg(28)tablet Prescriptions/Medication Reconciliation: New Ferrous Sulfate [Ferrous Sulfate 325mg Tablet] 325 mg PO BID tab Oxycodone HCl/Acetaminophen [Percocet 5/325mg tablet] 1 each PO Q6H PRN #20 tab PRN Reason: Moderate To Severe Pain Discontinued Nitrofurantoin Monohyd/M-Cryst [Nitrofurantoin [place]-Mcr 100 mg] 100 mg PO BID No Action norgestimate-ethinyl estradiol 0.18 mg/0.215mg/0.25mg-35 mcg(28)tablet 1 tab PO DAILY 30 Days #30 tab
--- NOTE | 2019-03-11 13:16 | HMH.DCSUM ---
General - General Admission date:: 03/08/19 Discharge date: 03/11/19 (This 28-year-old 2, para 1, now AB 1 (ectopic) white female was admitted to the emergency room on the evening of 03/07/2019 with severe abdominal pain and orthostatic hypotension. She had been diagnosed by her primary skip load driver as having a right-sided ectopic , and had been treated with methotrexate. She also received RhoGam prior to this admission (she is Rh-). Before she could have any further follow-up, she developed the acute onset of severe lower abdominal pain, primarily on the right side. This led to her to the [facility] emergency room, where her hemoglobin was 10.5 g, but her blood pressure showed definite signs of orthostatic hypotension and her abdomen was distended, with rebound throughout. After midnight (on the morning of 03/08/2019) she was taken to the operating room, where she underwent an exploratory laparotomy with evacuation of a massive hemoperitoneum (estimated 1200 cc of blood), and a right salpingectomy for a leaking ectopic . Her uterus, right ovary, and left adnexa were all normal. Her initial hemoglobin in the emergency room was 10.5 g. It dipped as low as 6.8 g due to acuteblood loss anemia. She was transfused 2 units of packed cells, and it has stabilized at 8.9 g. She has received a second dose of RhoGam postoperatively. Postoperatively, she has done well. She is eating and ambulating, and passing flatus. Her wound is clean. Her abdomen is soft. She has experienced some anxiety (history of same), and is been treated with Ativan successfully. She is discharged home on the third postoperative day on Percocet 5/325 (#20), 1 p.o. every 6 hours as needed pain, to be alternated with Tylenol and Motrin; and on Ativan 25 mg p.o. at bedtime as needed anxiety (#10). She is given appropriate instructions as to diet, exercise, and wound care, and she is to return to the office in 2 weeks for follow-up. She is not a smoker.) Hospital Course Rhogam Administration: Given Objective Vital signs: Temp Pulse Resp BP Pulse Ox 97.8 F 88 18 103/68 L 99 03/11/19 08:00 03/11/19 08:00 03/11/19 08:00 03/11/19 08:00 03/11/19 08:00 Results Labs on day of discharge: Labs from last 24 hours 03/08/19 00:30 Crossmatch (BUDG) See Detail Discharge Plan - Patient Discharge Instructions Additional Instructions: No strenuous activity Follow up with Dr. Shahid on 03/25/2019 at 2:15PM Nothing in vagina for 6 weeks Take medications as prescribed Patient Instructions: How to Care for a Surgical Wound, Anxiety and Panic Attacks (Alternative Therapy), DI for Anxiety -- Adult, DI for Acute Abdomen, DI for Postoperative Pain, DI for Prescription Opioid Use - Follow up Plan Follow up with: Provider,Referral, MD [Primary Care Provider] - Disposition: Home, Self-Intermediate Medications: Home Medications Medication Instructions Recorded Confirmed Type Ferrous Sulfate [Ferrous Sulfate 325 mg PO BID tab 03/11/19 Rx 325mg Tablet] Oxycodone HCl/Acetaminophen 1 each PO Q6H PRN #20 tab 03/11/19 Rx [Percocet 5/325mg tablet] norgestimate-ethinyl estradiol 1 tab PO DAILY 30 Days #30 tab 03/25/19 03/25/19 Rx 0.18 mg/0.215mg/0.25mg-35 mcg(28)tablet Prescriptions/Medication Reconciliation: New Ferrous Sulfate [Ferrous Sulfate 325mg Tablet] 325 mg PO BID tab Oxycodone HCl/Acetaminophen [Percocet 5/325mg tablet] 1 each PO Q6H PRN #20 tab PRN Reason: Moderate To Severe Pain Discontinued Nitrofurantoin Monohyd/M-Cryst [Nitrofurantoin Tate-Mcr 100 mg] 100 mg PO BID No Action norgestimate-ethinyl estradiol 0.18 mg/0.215mg/0.25mg-35 mcg(28)tablet 1 tab PO DAILY 30 Days #30 tab
--- NOTE | 2019-03-11 13:20 | P.DS_ITS ---
General - General Admission date:: 03/08/19 Discharge date: 03/11/19 (This 28-year-old 2, para 1, now AB 1 (ectopic) white female was admitted to the emergency room on the evening of 03/07/2019 with severe abdominal pain and orthostatic hypotension. She had been diagnosed by her primary target setter as having a right-sided ectopic , and had been treated with methotrexate. She also received RhoGam prior to this admission (she is Rh-). Before she could have any further follow-up, she developed the acute onset of severe lower abdominal pain, primarily on the right side. This led to her to the emergency room, where her hemoglobin was 10.5 g, but her blood pressure showed definite signs of orthostatic hypotension and her abdomen was distended, with rebound throughout. After midnight (on the morning of 03/08/2019) she was taken to the operating room, where she underwent an exploratory laparotomy with evacuation of a massive hemoperitoneum (estimated 1200 cc of blood), and a right salpingectomy for a leaking ectopic . Her uterus, right ovary, and left adnexa were all normal. Her initial hemoglobin in the emergency room was 10.5 g. It dipped as low as 6.8 g due to acuteblood loss anemia. She was transfused 2 units of pac ked cells, and it has stabilized at 8.9 g. She has received a second dose of RhoGam postoperatively. Postoperatively, she has done well. She is eating and ambulating, and passing flatus. Her wound is clean. Her abdomen is soft. She has experienced some anxiety (history of same), and is been treated with Ativan successfully. She is discharged home on the third postoperative day on Percocet 5/325 (#20), 1 p.o. every 6 hours as needed pain, to be alternated with Tylenol and Motrin; and on Ativan 25 mg p.o. at bedtime as needed anxiety (#10). She is given appropriate instructions as to diet, exercise, and wound care, and she is to return to the office in 2 weeks for follow-up. She is not a smoker.) Hospital Course Rhogam Administration: Given Objective Vital signs: Temp Pulse Resp BP Pulse Ox 97.8 F 88 18 103/68 L 99 03/11/19 08:00 03/11/19 08:00 03/11/19 08:00 03/11/19 08:00 03/11/19 08:00 Results Labs on day of discharge: Labs from last 24 hours 03/08/19 00:30 Crossmatch (AHG) See Detail Discharge Plan - Patient Discharge Instructions Additional Instructions: No strenuous activity Follow up with Dr. Shahid on 03/25/2019 at 2:15PM Nothing in vagina for 6 weeks Take medications as prescribed Patient Instructions: How to Care for a Surgical Wound, Anxiety and Panic Attacks (Alternative Therapy), DI for Anxiety -- Adult, DI for Acute Abdomen, DI for Postoperative Pain, DI for Prescription Opioid Use - Follow up Plan Follow up with: Provider,Referral, MD [Primary Care Provider] - Disposition: Home, Self-[facility] Medications: Home Medications Medication Instructions Recorded Confirmed Type Ferrous Sulfate [Ferrous Sulfate 325 mg PO BID tab 03/11/19 Rx 325mg Tablet] Oxycodone HCl/Acetaminophen 1 each PO Q6H PRN #20 tab 03/11/19 Rx [Percocet 5/325mg tablet] norgestimate-ethinyl estradiol 1 tab PO DAILY 30 Days #30 tab 03/25/19 03/25/19 Rx 0.18 mg/0.215mg/0.25mg-35 mcg(28)tablet Prescriptions/Medication Reconciliation: New Ferrous Sulf
== END 2019-03-11 14:50 | disposition home or self-care (01) | DRG 817 ==
LOC: ER 03-08 00:36 → SDC 03-08 00:55 → OB 03-08 01:09
PROVIDERS: Admitting Provider Obstetrics & Gynecology; Emergency Provider Emergency Medicine; Visit Provider Obstetrics & Gynecology
PROC: 0UT50ZZ Resection of Right Fallopian Tube, Open Approach (ICD-10-PCS; CPT 49000; principal; 2019-03-08 01:00)
DX: O00.101 Right tubal pregnancy without intrauterine pregnancy (principal); K66.1 Hemoperitoneum; O08.83 Urinary tract infection following an ectopic and molar pregnancy; N83.11 Corpus luteum cyst of right ovary; N85.8 Other specified noninflammatory disorders of uterus
CPT/HCPCS: 59120; 36415; 74018; 74176; 80053; 81001; 84702; 85007; 85014; 85018; 85025; 85461; 86850; 86870; 88305; 96365; 96366; 96375; 99284; J2405; J2710; J2790; P9016

== ENCOUNTER → 2019-07-05 17:03 | Outpatient (CLI) | payer MEDICAID, SELFPAY ==
[2019-07-05 17:22] LABS: Basophils % 0.5 % (0.1-2.0); Eosinophils # 0.2 K/mm3 (0.0-0.4); Eosinophils % 2.5 % (0.1-12.0); Hematocrit 40.5 % (37.0-47.0); Hemoglobin 12.5 g/dL (12.2-16.2); Lymphocytes # 1.7 K/mm3 (0.7-4.5); Lymphocytes % 26.1 % (10-50); Mean Corpuscular HGB Conc 30.9 g/dL (31.8-35.4); Mean Corpuscular Hemoglobin 28.6 pg (27.0-31.2); Mean Corpuscular Volume 92.7 fl (81-99); Mean Platelet Volume 7.6 fl (7.4-10.4); Monocytes # 0.3 K/mm3 (0.1-1.0); Monocytes % 4.7 % (1.7-9.3); Neutrophils # 4.2 K/mm3 (1.8-7.8); Neutrophils % 66.2 % (37.0-80.0); Platelet Count 286 K/mm3 (142-424); Red Blood Count 4.37 M/mm3 (4.20-5.40); Red Cell Distribution Width 13.8 % (11.5-17.5); White Blood Count 6.4 K/mm3 (4.8-10.8)
[2019-07-05 18:12] LABS: Alanine Aminotransferase 15 U/L (12-78); Albumin Level 4.2 gm/dL (3.4-5.0); Albumin/Globulin Ratio 1.4 (1.1-1.8); Alkaline Phosphatase 38 U/L (46-116); Aspartate Amino Transferase 9 U/L (15-37); Bilirubin,Total 0.6 mg/dL (0.2-1.0); Blood Urea Nitrogen 8 mg/dL (7-18); Calcium 7.9 mg/dL (8.5-10.1); Carbon Dioxide 30 mmol/L (21.0-32.0); Chloride 106 mmol/L (98-107); Creatinine,Serum 0.57 mg/dL (0.55-1.02); Estimated Glomerular Filt Rate 128 ml/min (>60); Free T4 (Free Thyroxine) 0.94 ng/dl (0.76-1.46); GFR (African American) 155 ML/MIN (>60); Glucose 91 mg/dL (74-106); Sodium 143 mmol/L (136-145); Thyroid Stimulating Hormone 1.83 uIU/ml (0.358-3.740); Total Protein,Serum 7.2 gm/dL (6.4-8.2)
[2019-07-05 18:47] LABS: Erythrocyte Sedimentation Rate 17 mm/hr (0-20)
== END ==
PROVIDERS: Visit Provider Emergency Medicine
DX: R07.89 Other chest pain (principal); R45.4 Irritability and anger; F41.9 Anxiety disorder, unspecified
CPT/HCPCS: 80053; 84439; 84443; 85025; 85651